=== PATIENT | female | born 1955 | race Caucasian/White ===

== ENCOUNTER 2019-02-07 09:30 | Day surgery (SDC) | payer OTHER ==
[~2019-02-07] VITALS: Ht 152.4 cm; Wt 49.2 kg
[2019-02-07 10:44] VITALS: Ht 152.4 cm; Wt 49.2 kg
[2019-02-07 10:45] VITALS: BP 115/65; PULSE 110; RESP 16
[2019-02-07] MEDS ORDERED: ALLO100T PO (11:20)
[2019-02-07] MEDS ORDERED: SOD CHLORIDE 0.9% IV SCH (12:00)
[2019-02-07] MEDS ORDERED: ACETAMINOPHEN 500 MG TAB PO ONE (12:00)
[2019-02-07] MEDS ORDERED: DIPHENHYDRAMINE 25 MG CAP PO ONE (12:00)
[2019-02-07] MEDS ORDERED: METHOTREXATE IV SCH (12:00)
[2019-02-07] MEDS ORDERED: DEXAMETHASONE IV SCH (12:00)
[2019-02-07] MEDS ORDERED: LIDOCAINE 1% (MPF) 5 ML VIAL ONE (12:34)
[2019-02-07 13:08] VITALS: BP 97/53; PULSE 101; RESP 16
[2019-02-07 14:30] VITALS: BP 100/64; PULSE 104; RESP 18
== END 2019-02-07 14:49 | disposition home or self-care (01) ==
LOC: SDS 09:30 → EDUNIT# 11:00 → SDS 14:49
PROVIDERS: ATTEND Internal Medicine Hematology & Oncology
DX: C85.90 Non-Hodgkin lymphoma, unspecified, unspecified site (principal); R73.03 Prediabetes
CPT/HCPCS: 62270; 96450; J1100; J9260; Z7610

== ENCOUNTER 2019-02-09 09:26 | Day surgery (SDC) | payer OTHER ==
[~2019-02-09] VITALS: Ht 152.4 cm; Wt 49.3 kg
[~2019-02-09 09:26] MED LIST: ACETAMINOPHEN 500 MG TAB PO SCH; ALLO100T PO; DEXAMETHASONE IT SCH; DEXAMETHASONE IV SCH; DIPHENHYDRAMINE 25 MG CAP PO SCH; METHOTREXATE IT SCH; METHOTREXATE IV SCH; SOD CHLORIDE 0.9% IT SCH; SOD CHLORIDE 0.9% IV SCH
--- NOTE | 2019-02-09 10:35 | HPN ---
Date/Time of Note Date/Time of Note DATE: 02/09/19 TIME: 10:35 Interval H&P Admission Note Pt. seen H&P reviewed: No system changes JOSE CONROY MD Feb 09, 2019 10:35
[2019-02-09 10:56] VITALS: BP 99/56; PULSE 81; RESP 16
[2019-02-09 12:50] VITALS: BP 110/56; PULSE 95; RESP 18
--- NOTE | 2019-02-12 10:06 | HPN ---
Date/Time of Note Date/Time of Note DATE: 02/12/19 TIME: 10:06 Interval H&P Admission Note Pt. seen H&P reviewed: No system changes SO BAILEY MD Feb 12, 2019 10:06
== END 2019-02-09 14:10 | disposition home or self-care (01) ==
LOC: SDS 09:26 → EDUNIT# 11:00 → SDS 14:10
PROVIDERS: ATTEND Internal Medicine Hematology & Oncology
DX: C85.90 Non-Hodgkin lymphoma, unspecified, unspecified site (principal); R73.03 Prediabetes
CPT/HCPCS: 62270; J1100; J9260; Z7610

== ENCOUNTER 2019-02-14 09:29 | Day surgery (SDC) | payer OTHER ==
[~2019-02-14] VITALS: Ht 152.4 cm; Wt 48.6 kg
[~2019-02-14 09:29] MED LIST changes: -ACETAMINOPHEN 500 MG TAB PO SCH; -DEXAMETHASONE IT SCH; -DEXAMETHASONE IV SCH; -DIPHENHYDRAMINE 25 MG CAP PO SCH; -METHOTREXATE IT SCH; -METHOTREXATE IV SCH; -SOD CHLORIDE 0.9% IT SCH; -SOD CHLORIDE 0.9% IV SCH
--- NOTE | 2019-02-14 10:03 | HPN ---
Date/Time of Note Date/Time of Note DATE: 02/14/19 TIME: 10:03 Interval H&P Admission Note Pt. seen H&P reviewed: No system changes SO BAILEY MD Feb 14, 2019 10:03
[2019-02-14] MEDS ORDERED: ACETAMINOPHEN 500 MG TAB PO ONE (10:30)
[2019-02-14] MEDS ORDERED: DIPHENHYDRAMINE 25 MG CAP PO ONE (10:30)
[2019-02-14 10:31] VITALS: BP 104/56; PULSE 91; RESP 16
[2019-02-14] MEDS ORDERED: SOD CHLORIDE 0.9% IT SCH (11:00)
[2019-02-14] MEDS ORDERED: METHOTREXATE IT SCH (11:00)
[2019-02-14] MEDS ORDERED: DEXAMETHASONE IT SCH (11:00)
[2019-02-14] MEDS ORDERED: LIDOCAINE 1% (MPF) 5 ML VIAL ONE (12:20)
[2019-02-14 12:59] VITALS: BP 99/58; PULSE 94; RESP 18
== END 2019-02-14 13:37 | disposition home or self-care (01) ==
LOC: SDS 09:29
PROVIDERS: ATTEND Internal Medicine Hematology & Oncology
DX: C85.90 Non-Hodgkin lymphoma, unspecified, unspecified site (principal); R73.03 Prediabetes
CPT/HCPCS: 62270; J1100; J9260; Z7610

== ENCOUNTER 2019-02-16 09:17 | Day surgery (SDC) | payer OTHER ==
[~2019-02-16] VITALS: Ht 152.4 cm; Wt 49.5 kg
[2019-02-16 10:12] VITALS: BP 92/50; PULSE 88; RESP 16
[2019-02-16] MEDS ORDERED: DEXAMETHASONE IT SCH (10:30)
[2019-02-16] MEDS ORDERED: ACETAMINOPHEN 500 MG TAB PO ONE (10:30)
[2019-02-16] MEDS ORDERED: METHOTREXATE IT SCH (10:30)
[2019-02-16] MEDS ORDERED: DIPHENHYDRAMINE 25 MG CAP PO ONE (10:30)
[2019-02-16] MEDS ORDERED: SOD CHLORIDE 0.9% IT SCH (10:30)
--- NOTE | 2019-02-20 16:16 | HPN ---
Date/Time of Note Date/Time of Note DATE: 02/20/19 TIME: 16:16 Interval H&P Admission Note Pt. seen H&P reviewed: No system changes SO BAILEY MD Feb 20, 2019 16:16
== END 2019-02-16 13:10 | disposition home or self-care (01) ==
LOC: SDS 09:17
PROVIDERS: ATTEND Internal Medicine Hematology & Oncology
DX: C85.80 Other specified types of non-Hodgkin lymphoma, unspecified site (principal); R73.03 Prediabetes
CPT/HCPCS: 62270; 96450; J1100; J9260; Z7610